=== PATIENT | male | born 1990 | race African-American/Black ===

== ENCOUNTER 2019-05-08 09:43 | Emergency (ER) | payer MEDICAID ==
[~2019-05-08] VITALS: Ht 188 cm; Wt 73.5 kg
--- NOTE | 2019-05-08 09:46 | NUR ---
PT LILLY TO ED BED 13. PER REPORT PT WAS BEING ESCORTED OUT OF A [employer] BUT WAS UNSTEADY SO PD CALLED [facility]. PT W/ STRONG ETOH SMELL. ADMITS TO ALCOHOL. VERBALLY RESPONSIVE. DENIES ANY CHEST PAIN OR SOB. PLACED ON MONITOR EVGENY LOUISE.
--- NOTE | 2019-05-08 10:09 | NUR ---
DR OLIVEIRA AT BEDSIDE FOR EVAL.
[2019-05-08] MEDS ORDERED: IV NS 0.9% 1,000 ML BAG IV ONE (10:30)
[2019-05-08] MEDS ORDERED: THIAMINE HCL 100 MG TABLET PO ONE (10:30)
--- NOTE | 2019-05-08 10:30 | NUR ---
PRINTED CIRCUIT BOARD PANELS DEVELOPER AT BEDSIDE FOR BLOOD DRAW.
--- NOTE | 2019-05-08 10:30 | NUR ---
[place] [facility] - 05/08/19 at 1346 by NINA LICENSING REGISTRATION EXAMINER AT BEDSIDE FOR GUIAL.
[2019-05-08 10:36] LABS: BASOPHILS % (AUTO) 0.5 % (0.0-2.0); EOSINOPHILS % (AUTO) 0.7 % (0.0-6.0); HEMATOCRIT 41 % (39-51); HEMOGLOBIN 13.6 g/dL (13.5-17.5); LYMPHOCYTES % (AUTO) 19.6 % (20.0-44.0); MEAN CORPUSCULAR HGB CONC 33 g/dl (31.0-36.0); MEAN CORPUSCULAR VOLUME 99 fL (80-96); MONOCYTES # (AUTO) 0.4 /CMM (0.1-1.30); MONOCYTES % (AUTO) 7.4 % (2.0-12.0); NEUTROPHILS # (AUTO) 3.6 /CMM (1.8-8.9); NEUTROPHILS % (AUTO) 71.8 % (43.0-81.0); PLATELET COUNT (AUTO) 164 /CMM (150-450); RED BLOOD CELL COUNT(AUTO) 4.16 MIL/uL (4.5-6.0); WHITE BLOOD COUNT (AUTO) 5.1 K/uL (4.3-11.0)
[2019-05-08 10:50] LABS: ALBUMIN 3.9 g/dL (3.4-5.0); BILIRUBIN,DIRECT 0.1 mg/dL (0.0-0.2); BILIRUBIN,TOTAL 0.4 mg/dL (0.2-1.0); CALCIUM, SERUM 8.4 mg/dL (8.5-10.1); CREATININE 0.7 mg/dL (0.6-1.3); POTASSIUM 3.3 mmol/L (3.5-5.1)
[2019-05-08 11:15] LABS: MAGNESIUM 1.4 mg/dL (1.8-2.4)
[2019-05-08] MEDS ORDERED: POTASSIUM CHLORIDE 20 MEQ TAB.PRT.SR PO ONE ×2 (11:30→11:53)
[2019-05-08] MEDS ORDERED: Magnesium 1GM/D5W 100ML PREMIX 100 ML IV ONE ×2 (11:36→11:38)
[2019-05-08] MEDS ORDERED: THIAMINE HCL 100 MG TABLET ONE (11:37)
[2019-05-08] MEDS: Magnesium 1GM/D5W 100ML PREMIX 100 ML IV SCH ×2 (11:46→12:46)
--- NOTE | 2019-05-08 12:25 | NUR ---
PT PROVIDED W/ MEAL TRAY.
--- NOTE | 2019-05-08 13:47 | NUR ---
IFRAH VU AT BEDSIDE TALKING TO PT.
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
--- NOTE | 2019-05-08 14:27 | NUR ---
PT MEDICALLY CLEARED. DISCHARGE FROM ED IN STABLE CONDITION. PT WAS PROVIDED W/ TAP CARD AND HOMELESS REFFERALS.
[2019-05-08 14:28] VITALS: BP 136/84
== END 2019-05-08 14:28 | disposition home or self-care (01) ==
LOC: ER 09:57
DX: R41.82 Altered mental status, unspecified (principal); F10.10 Alcohol abuse, uncomplicated; E83.42 Hypomagnesemia; E87.6 Hypokalemia; R56.9 Unspecified convulsions; Y90.9 Presence of alcohol in blood, level not specified
CPT/HCPCS: 36415; 80048; 80076; 83735; 85025; 96365; 96366; 99284; J3475 ×2; J7030